=== PATIENT | female | born 1995 | race African-American/Black ===

== ENCOUNTER 2017-10-22 20:54 | Emergency (ER) | payer OTHER ==
[~2017-10-22] VITALS: Ht 170.2 cm; Wt 67.1 kg
[~2017-10-22 20:54] MED LIST: MOTRIN400 MG PO; NAPROXEN500 MG PO
[2017-10-22] MEDS ORDERED: DIFLUCAN150 MG PO (21:18)
[2017-10-22 22:16] VITALS: BP 129/88
== END 2017-10-22 22:17 | disposition left against medical advice (07) ==
LOC: EME 20:54
DX: N89.8 Other specified noninflammatory disorders of vagina (principal)
CPT/HCPCS: 99281; 99283